=== PATIENT | male | born 1955 | race Caucasian/White ===

== ENCOUNTER 2018-10-24 15:56 | Outpatient (CLI) | payer BC, SELFPAY ==
[2018-10-26 20:45] LABS: Measles IgG Antibody Positive
== END 2018-10-24 16:16 ==
PROVIDERS: PCP Naturopath; Visit Provider Naturopath
DX: Z01.84 Encounter for antibody response examination (principal)
CPT/HCPCS: 36415; 86765

== ENCOUNTER 2021-06-23 02:19 | Outpatient (CLI) | payer BC, SELFPAY | END 2021-06-23 02:20 | disposition home or self-care (01) | LOC: LBO 02:19 | PROVIDERS: PCP Naturopath; Visit Provider Acupuncturist ==

== ENCOUNTER 2021-07-09 03:37 | Outpatient (CLI) | payer BC, SELFPAY ==
[2021-07-09 09:00] LABS: Abs Immature Grans 0.04 10^3/uL (0.0-0.06); Absolute Basophil Count 0.05 10^3/uL (0.0-0.2); Absolute Eosinophil Count 0.14 10^3/uL (0.0-0.7); Absolute Lymphocyte Count 1.63 10^3/uL (1.2-3.4); Absolute Monocyte Count 0.56 10^3/uL (0.1-0.8); Absolute Neutrophil Count 5.56 10^3/uL (1.2-6.7); Basophils % 0.6; Eosinophils % 1.8; HCT 46.6 % (40.0-50.0); HGB 14.9 g/dL (13.5-17.5); Immature Grans % 0.5; Lymphocytes % 20.4; MCV 90.7 fL (80-95); MPV 10.3 fL (8.0-11.0); Neutrophils % 69.7; Nucleated RBC 0 %; Platelet Count 269 10^3/uL (130-400); RBC 5.14 10^6/uL (4.36-5.78); RDW 12.2 % (11.8-14.1); RDW-SD 40.7 fL; WBC 7.98 10^3/uL (4.4-10.8)
[2021-07-09 10:27] LABS: Vitamin D 25 Total 18.3 ng/mL (30-100)
[2021-07-09 10:33] LABS: ALT 11 U/L (16-63); AST 12 U/L (15-37); Albumin 3.9 g/dL (3.4-5.0); Alkaline Phosphatase 105 U/L (46-116); Anion Gap 6.8 mmol/L (3-11); BUN 16 mg/dL (7-18); Bilirubin, Total 0.5 mg/dL (0.2-1.0); CO2 30.2 mmol/L (21.0-32.0); CREATININE 0.8 mg/dL (0.70-1.30); Calcium 9.1 mg/dL (8.5-10.1); Calculated LDL 92 mg/dL (<100); Chloride 100 mmol/L (98-107); Cholesterol 157 mg/dL (<200); Glucose 274 mg/dL (74-106); HDL Cholesterol 52 mg/dL (40-60); Sodium 137 mmol/L (136-145); TSH 1.24 uIU/mL (0.36-3.74); Total Protein 7.2 g/dL (6.4-8.2); Triglyceride 67 mg/dL (<150); Vitamin B12 312 pg/mL (193-986)
[2021-07-09 10:50] LABS: FREE T4 1.05 ng/dL (0.76-1.46)
[2021-07-09 17:23] LABS: T3, Total 141 ng/dL (97-169)
[2021-07-14 11:00] LABS: T3 (Triiodothyronine) Reverse 19 ng/dL (10-24)
== END 2021-07-09 03:38 | disposition home or self-care (01) ==
PROVIDERS: PCP Naturopath; Visit Provider Acupuncturist
DX: Z00.00 Encounter for general adult medical examination without abnormal findings (principal); R53.83 Other fatigue
CPT/HCPCS: 36415; 80053; 80061; 82306; 82607; 84439; 84443; 84480; 84481; 84482; 85025

== ENCOUNTER 2024-05-08 12:13 | Emergency (ER) | payer MEDICARE, SELFPAY ==
[2024-05-08] VITALS (29 sets, daily range): BP systolic 158–201; BP diastolic 82–95; PULSE 106–126; RESP 3–27; TEMP 36.2–38.8; O2SAT 93–106
--- NOTE | 2024-05-08 12:39 | W.ED.GENAD ---
Discharge Plan Disposition Patient Disposition: Home Condition: Stable Discharge Details Clinical Impression: COVID-19, LLL pneumonia, Enlarged thoracic aorta Primary Care Provider: Clare Kemp ED Provider: Valentina Sapp Home Meds and New Rx's Prescriptions: New Paxlovid 300 mg (150 mg x 2)-100 mg tablets,dose pack See Rx Instructions .ROUTE .COMPLEX Qty: 30 0RF Rx Instructions: take TWO 150 mg tablets of nirmatrelvir with ONE 100 mg tablet of ritonavir twice daily for 5 days azithromycin 250 mg tablet 250 mg PO DAILY 4 Days Qty: 4 0RF Rx Instructions: start on day 2 of therapy cefpodoxime 200 mg tablet 200 mg PO Q12H Qty: 10 0RF Rx Instructions: must administer with a meal/food Continued metformin 500 mg tablet 1,000 mg PO BID carbidopa-levodopa 25-100 mg tablet 1 tab PO TID Patient Comments: pt takes 1 every 3 hours Discharge Instructions Additional Instructions: Please call your primary care provider first thing in the morning to schedule follow-up appointment early next week. Your CAT scan did show some mild enlargement of your thoracic aorta. It is recommended that you have this monitored by your primary care provider with ultrasound. You are COVID-positive and have a consolidation in your left lower lobe consistent with pneumonia. Please take the azithromycin and cefpodoxime (antibiotics) and Paxlovid (antiviral) as prescribed. Keep an eye on your pulse ox at home. I recommend that you use a humidifier at home to help you with your clearing mucus. Stay well-hydrated. You may also use the albuterol inhaler 2 puffs every 4-6 hours as needed with spacer. Return to emergency care if you develop new chest pain, difficulty breathing, feeling like you are going to pass out, inability to hold down fluids, or if you are very worried and need to be rechecked again immediately. Referrals: Clare Kemp [Primary Care Provider] - [facility] General Date/Time Provider Initiated Documentation: 05/08/24 12:30. HPI Narrative: Melvin (preferred name) is a 68year old male who presents to the emergency department today for evaluation of low O2 sat according to at home. She reports that she was diagnosed with COVID-19 on the , Esteban developed symptoms yesterday afternoon. He reports feeling feverish/chills, body aches, congested cough, increased mucus production, sore throat, occasional headaches, and decreased appetite. He has been able to take p.o normally, the says that his throat is uncomfortable. Denies abdominal pain, difficulty breathing, chest pain, nausea/vomiting, change in bowel or bladder function. says that he normally has some difficulty with respiratory issues due to Parkinson's. Past medical history is significant for Parkinson's disease and T2DM. Physical exam remarkable for significant upper airway congestion. Moist mucous membranes, normal oropharynx. Cervical lymphadenopathy noted bilaterally. Normal heart sounds. Coarse wheezes throughout all lung jimenez. Occasional cough. Abdomen soft, nondistended, nontender to palpation. D/dx includes but is not limited to: Viral illness, pneumonia, reactive airway, persistent tachycardia concerning for pulmonary embolism in setting of COVID I independently interpreted the following tests: CBC and BMP reassuring. COVID-positive. No obvious infiltrate noted on chest x-ray. CTA performed to rule out PE, significant for left lower lobe infiltrate. No pleural effusion, pulmonary embolism, or acute pulmonary etiology noted otherwise. While in the emergency department, Esteban received an albuterol nebulizer with moderate improvement of symptoms. Workup today significant for COVID 19 and left lower lobe pneumonia. Will treat with Paxlovid and azithromycin/cefpodoxime. Advise close follow-up with PCP. Prescriptions sent to pharmacy. Reviewed discharge instructions with patient, including symptomatic management and red flags indicating need for return to emergency care. Patient and voiced agreement with plan of care. voice agreement with plan of care Related Data Home Medications ?Medication ?Instructions ?Recorded ?Confirmed azithromycin 250 mg tablet 250 mg PO DAILY 4 days #4 tabs 05/08/24 carbidopa 25 mg-levodopa 100 mg 1 tab PO TID 05/08/24 05/08/24 tablet cefpodoxime 200 mg tablet 200 mg PO Q12H #10 tabs 05/08/24 metformin 500 mg tablet 1,000 mg PO BID 05/08/24 05/08/24 nirmatrelvir 300 mg (150 mg See Rx Instructions PO .COMPLEX 05/08/24 x2)-ritonavir 100 mg tablet,dose #30 dose pk pack (Paxlovid) Previous Rx's ?Medication ?Instructions ?Recorded azithromycin 250 mg tablet 250 mg PO DAILY 4 days #4 tabs 05/08/24 cefpodoxime 200 mg tablet 200 mg PO Q12H #10 tabs 05/08/24 nirmatrelvir 300 mg (150 mg See Rx Instructions PO .COMPLEX 05/08/24 x2)-ritonavir 100 mg tablet,dose #30 dose pk pack (Paxlovid) Allergies Allergy/AdvReac Type Severity Reaction Status Date / Time No Known Allergies Allergy Unverified 05/08/24 12:23 General Stated Complaint: RespSymp FILIBERTO: 3 Review of Systems Narrative: see HPI Exam Const General: cooperative, comfortable, no acute distress and well developed Nutritional Appearance: average body habitus Orientation: alert HENMT Head: normal to inspection Ears: hearing grossly normal bilaterally General nose exam: nasal discharge clear Mouth: oral mucosae normal, oropharynx normal and moist mucous membranes Throat: posterior oropharynx normal Neck Neck: normal visual inspection, full ROM and lymphadenopathy bilateral anterior cervical Resp Effort & Inspection: normal respiratory effort, able to speak in complete sentences and cough Auscultation: wheezes (course throughout) Cardio Rate: tachycardic Rhythm: regular rhythm GI Inspection: normal to inspection and non-distended Palpation: soft and nontender Skin General skin exam: no rashes or lesions noted Course Vital Signs Vital signs: Vital Signs Temperature 36.2 C L 05/08/24 12:17 Pulse 112 H 05/08/24 12:17 Respiratory Rate 20 05/08/24 12:17 Blood Pressure 158/85 H 05/08/24 12:17 Pulse Oximetry 93 05/08/24 12:17 Temperature 36.2 C L 05/08/24 12:22 Pulse 112 H 05/08/24 12:22 Respiratory Rate 20 05/08/24 12:22 Respiratory Effort Normal 05/08/24 12:22 Blood Pressure 158/85 H 05/08/24 12:22 Pulse Oximetry 93 05/08/24 12:22 Oxygen Delivery Method Room Air 05/08/24 12:22 Oxygen Flow Rate 0 05/08/24 12:17 Medical Decision Making Quality:SDOH Health Related Social Needs: No Data to Display PFSH All Active Problems (Updated 05/08/24 @ 15:50 by Valentina Lewis) Enlarged thoracic aorta (Acute) LLL pneumonia (Acute) COVID-19 (Acute) Social History Smoking risk assessment performed?: No Do you feel safe in your relationship?: Yes
[2024-05-08] MEDS: Albuterol 2.5 MG/3 ML INH SOLN VIAL UPD (12:47)
[2024-05-08 13:22] LABS: Influenza A PCR Negative (Negative); Influenza B PCR Negative (Negative); RSV PCR Negative (Negative)
[2024-05-08 13:27] LABS: COVID-19 PCR Positive (Negative); Source Nasopharynx
--- NOTE | 2024-05-08 13:40 | DI.RAD_ITS ---
Exam(s) XR CHEST 2V PA LATERAL EXAM: XR CHEST 2V PA LATERAL CLINICAL HISTORY: cough, COVID+, h/o parkinsons TECHNIQUE: 2D digital imaging was performed of the chest. Two images were obtained. PA and lateral views were obtained. COMPARISON: No exams were available for comparison FINDINGS: MEDIASTINUM: Normal. HEART: Normal. PULMONARY VASCULATURE: Normal. LUNGS: No focal consolidating infiltrates. PLEURAL SPACE: No pleural effusion or pneumothorax. BONE:Within normal limits for the patient's age. OTHER FINDINGS:Normal. IMPRESSION: No focal consolidating infiltrates. DATA REPOSITORY: RADIATION DOSE DELIVERED:
--- NOTE | 2024-05-08 14:15 | DI.CT_ITS ---
Exam(s) CT CHEST PE CTA EXAM: CT CHEST PE CTA CLINICAL HISTORY: SOB, cough, COVID+ concern for PE. TECHNIQUE: Imaging Protocol: CT angiography of the chest was performed using pulmonary embolus princess col. Multi planar reconstructions were performed. CONTRAST MATERIAL: Intravenous: Omnipaque 350 Contrast volume: 100 cc COMPARISON: No exams were available for comparison FINDINGS: CHEST: PULMONARY ARTERIES: There are no intraluminal filling defects to suggest acute pulmonary emboli. LUNGS: There is some subpleural infiltrate in the posterior basal segment of the left lower lobe. No other pulmonary findings and there are no pleural effusions. No ground-glass infiltrates.. MEDIASTINUM: There is no hilar nor mediastinal adenopathy. Visualized thyroid unremarkable. CARDIAC: Heart size is upper normal. There is no pericardial effusion.Caliber of the ascending thora cic aorta is slightly prominent with maximum measurement 3.9 cm. No evidence of dissection. There i s no significant shift of the interventricular septum. 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 Also noted in the partially included right kidney is a 3 x 1.5 cm lesion which appears slightly denser than a typical cyst and should be studied with ultrasound. No adrenal masses evident. No splenomegaly. OSSEOUS: No fractures nor significant osseous lesions evident.. IMPRESSION: 1. No evidence of acute pulmonary emboli. No evidence of aortic dissection nor pericardial effusion. 2. There is some infiltrate evident in the left lower lobe posterior basal segment. Probable pneumon ia. No associated pleural effusion. Opposite-right lung is clear 3. Incidentally noted is mild enlargement of the diameter of the ascending thoracic aorta which measu res 3.9 cm. There is no evidence of aortic dissection Report called by myself to ER provider 05/08/2024 3:40 p.m. RADIATION DOSE DELIVERED: 105.03mGy.cm Total DLP DATA REPOSITORY: All CT scans at this facility are submitted to the National Radiology Data Registry (NRDR) Dose Index Registry (DIR) with the [employer] (ACR). RADIATION OPTIMIZATION: All CT scans at this facility use at least one of these dose optimization te chniques: automated exposure control; mA and/or kV adjustment per patient size (includes targeted exa ms where dose is matched to clinical indication); or iterative reconstruction.
--- NOTE | 2024-05-08 14:15 | RT.EKG_ITS ---
APPROVED REPORT Exam: Resting ECG Reason for Exam: Tachycardia Patient Location: E HR:116 bpm ECG Measurements Heart Rate 116 AXIS GA 155 P 26 QRSd 102 QRS 13 QT 307 T 68 QTc 427 Conclusion Sinus tachycardia 116 normal axis no stemi
[2024-05-08 14:37] LABS: Abs Immature Grans 0.04 10^3/uL (0.0-0.06); Absolute Basophil Count 0.02 10^3/uL (0.0-0.2); Absolute Eosinophil Count 0.27 10^3/uL (0.0-0.7); Absolute Neutrophil Count 7.76 10^3/uL (1.2-6.7); Basophils % 0.2 %; Eosinophils % 2.6 %; HCT 41.8 % (40.0-50.0); HGB 13.7 g/dL (13.5-17.5); Immature Grans % 0.4 %; Lymphocytes % 6.8 %; MCH 30.2 pg (27.0-33.0); MCHC 32.8 % (32.0-36.0); MCV 92 fL (80-95); MPV 9.8 fL (8.0-11.0); Monocytes % 14.6 %; Neutrophils % 75.4 %; Platelet Count 202 10^3/uL (130-400); RBC 4.53 10^6/uL (4.36-5.78); RDW-SD 40.9 fL; WBC 10.29 10^3/uL (4.4-10.8)
[2024-05-08 14:48] LABS: BUN 14 mg/dL (7-18); Calcium 8.6 mg/dL (8.5-10.1); Chloride 99 mmol/L (98-107); Estimated GFR 81.47 (mL/min/1.73m2); Glucose 209 mg/dL (74-106); Potassium 3.9 mmol/L (3.5-5.1); Sodium 133 mmol/L (136-145)
[2024-05-08] MEDS: Omnipaque 350 MG/ML 100 ML BTL IJ (15:11)
[2024-05-08] MEDS: Normal Saline - Diluent 50 ML VIAL IJ (15:12)
[2024-05-08] MEDS: Azithromycin 250 MG TAB 500 MG PO (15:56)
[2024-05-08] MEDS: Cefpodoxime 200 MG TAB PO (15:56)
[2024-05-08] MEDS: Albuterol HFA 8 GM 60 PUFF INH IH (15:56)
[2024-05-08] MEDS: Inhaler, Assist Device 1 EACH MC (15:57)
== END 2024-05-08 16:18 | disposition home or self-care (01) ==
PROVIDERS: Emergency Provider Nurse Practitioner Family; PCP Family Medicine
DX: U07.1 COVID-19 (principal); J12.82 Pneumonia due to coronavirus disease 2019; I77.810 Thoracic aortic ectasia; R00.0 Tachycardia, unspecified; G20.A1 Parkinson's disease without dyskinesia, without mention of fluctuations; E11.9 Type 2 diabetes mellitus without complications; Z79.84 Long term (current) use of oral hypoglycemic drugs; Z79.899 Other long term (current) drug therapy
CPT/HCPCS: 36415; 71275; 80048; 87426; 87637; 93005; 94640; 99285; 71046; 85025; 93010; J3490; J7613

== ENCOUNTER 2024-05-15 14:07 | Outpatient (CLI) | payer MEDICARE, SELFPAY ==
--- NOTE | 2024-05-15 | DI.RAD_ITS ---
Exam(s) XR CHEST 2V PA LATERAL EXAM: XR CHEST 2V PA LATERAL CLINICAL HISTORY: ACUTE COVID, U07.1, WORSENING SOB TECHNIQUE: 2D digital imaging was performed. Two views. COMPARISON: CT CT CHEST PE CTA from 05/08/2024 FINDINGS: HEART: Normal size. Aorta: Mildly ectatic. PULMONARY VASCULATURE: Normal. MEDIASTINUM: Unremarkable. LUNGS: Clear. PLEURAL SPACE: No pleural effusion or pneumothorax. BONE:Unremarkable for age. SOFT TISSUES: Unremarkable. IMPRESSION: No acute abnormality. DATA REPOSITORY: RADIATION DOSE DELIVERED:
== END 2024-05-15 14:27 ==
LOC: DI 14:13
PROVIDERS: PCP Family Medicine; Visit Provider Family Medicine
DX: R06.02 Shortness of breath (principal)
CPT/HCPCS: 71046

== ENCOUNTER 2024-11-14 15:51 | Outpatient (CLI) | payer MEDICARE, SELFPAY ==
--- NOTE | 2024-11-14 15:52 | DI.RAD_ITS ---
Exam(s) XR CHEST 2V PA LATERAL EXAM: XR CHEST 2V PA LATERAL CLINICAL HISTORY: Acute cough, R05.1. TECHNIQUE: 2D digital imaging was performed. COMPARISON: CR XR CHEST 2V PA LATERAL from 05/08/2024 CR XR CHEST 2V PA LATERAL from 05/15/2024 FINDINGS: 2 views: Heart size is normal. The mediastinum is not widened. Lungs are clear. No infiltrates nor pleural effusions. There is a new partially calcified nodule in the lateral left lung base. Measuring approximately 9 x 10 mm. None there is possibly that this represents of breast nipple but this finding was not previo usly evident. Similar finding not seen on the opposite-right side. No fractures. IMPRESSION: There is a benign-appearing 9 x 10 mm nodule in the lateral right lung base, not previously present. There is a possibly that this represents of breast nipple. Recommend repeat PA view with bilateral metallic nipple markers in place. No infiltrates nor pleural effusions. DATA REPOSITORY: RADIATION DOSE DELIVERED:
== END 2024-11-14 16:11 ==
LOC: DI 15:52
PROVIDERS: PCP Family Medicine; Visit Provider Physician Assistant Medical
DX: R05.1 Acute cough (principal); R91.8 Other nonspecific abnormal finding of lung field
CPT/HCPCS: 71046

== ENCOUNTER 2024-11-15 02:14 | Outpatient (CLI) | payer MEDICARE, SELFPAY ==
--- NOTE | 2024-11-15 | DI.US_ITS ---
APPROVED REPORT EXAM: Comprehensive 2D, Doppler, and color-flow Echocardiogram Patient Location: Out-Patient Student Activities Director: Maricarmen Moulton RDCS (AE) Indications: AAA rupture, Dilated ascending aorta seen on CT Other Information Study Quality: Fair. Technically limited study due to body habitus. Conclusion Normal left ventricular wall thickness and chamber size. Ejection fraction is 65%. Wall motion is n ormal Normal right ventricular size and function Both atria are normal in size There are no structural valvular abnormalities Mild mitral regurgitation Ascending aorta was not well-visualized Wall motion Left Ventricle The left ventricle is normal size. The overall left ventricular systolic function appears normal. Maik hnically limited, low parasternal imaging window. There is normal left ventricular wall thickness. Re gional wall motion is grossly normal. LVEF is 65%. Right Ventricle The right ventricle is normal size. The right ventricular systolic function is normal. Atria The left atrium size is normal. The right atrium size is normal. Aortic Valve The aortic valve is normal in structure. Aortic valve is trileaflet. There is no aortic valvular sten osis. Mitral Valve The mitral valve is normal in structure. No evidence of mitral valve stenosis. Mild mitral regurgitat ion. Tricuspid Valve The tricuspid valve is normal in structure. There is no tricuspid valve stenosis. There is no tricusp id valve regurgitation noted. Pulmonic Valve The pulmonary valve is normal in structure. There is no pulmonic valvular stenosis. There is no pulmo caleb valvular regurgitation. Great Vessels The aortic root is normal in size. Ascending aorta is not well visualized. The IVC was not visualized . Technically limited subcostal imaging. Pericardium Technically limited subcostal imaging. 2D Dimensions IVSD d PLAX 0.90 cm M: 0.6-1.2 Ao Root d 3.45 cm M: 3.1 - 3.7 LVPW d PLAX 0.92 cm M: 0.6 - 1.2 LVID d PLAX 4.92 cm M: 4.2 - 5.8 LVDs 3.35 cm M: 2.5 - 4.0 LV EF Teichholz 59.8 % FS 31.91 % LV EDV (Teich) 113.7 mL LV ESV (Teich) 45.7 mL M-Mode TAPSE 3.08 cm (M/F) >1.7 Auto EF LV EDV A4C 146.1 mL LV EDV A2C 142.8 mL LV EDV BP 144.1 mL LV ESV A4C 63.0 mL LV ESV A2C 60.7 mL LV ESV BP 61.5 mL LVEF(%) A4C 56.9 % LVEF(%) A2C 57.5 % LVEF(%) BP 57.3 % LV SV A4C 83.1 ml LV SV A2C 82.2 ml LV SV BP 82.6 ml LV CO A4C 7.1 L/min LV CO A2C 7.3 L/min LV CO BP 7.2 L/min HR A4C 85.31 BPM HR A2C 88.46 BPM LV EDV Index (BP) LA Volume LA Length A4C 5.4 cm LA Length A2C 5.8 cm LA Area A4C s 20.41 cm2 LA Area A2C s 19.95 cm2 LA Vol A4C A-L 65.93 mL LA Vol A2C A-L 58.23 mL LA Vol Biplane A-L 64.5 mL LA Vol/BSA A4C A-L LA Vol/BSA A2C A-L LA Vol/BSA BP A-L 31.0 mL/m2 LA Vol A4C MOD 61.6 mL LA Vol A2C MOD 53.1 mL LA Vol BP MOD 58.3 mL RA Volume RA Area A4C 14.2 cm2 RA ESV A4C (A-L) 35.8mL RA Vol/BSA A4C A-L RA Length A4C 4.8 cm RA ESV A4C (MOD) 34.9mL LV Diastology MV E' medial 0.103 (>0.07 m/s) MV E Vmax 0.81 (0.4-1.3 m/s) MV E/E' MED 7.89 (<14) MV A Vmax 0.90 (0.4-1.3 m/s) MV E' lateral 0.103 (>0.1 m/s) E/A Ratio 0.9 MV E/E' LAT 7.89 (<14) MV E' Average 0.103 m/s MV E/E'(average) 7.89 Aortic Valve AoV Vmax 1.62 m/s LVOT Vmax 1.02 m/s AoV Peak Grad 10.5 mmHg LVOT Peak Grad 4.2 mmHg AoV Area (Vmax) 2.04 cm2 LVOT VTI 0.232 m AoV VTI 0.356 m LVOT Mean Grad 2.3 mmHg AoV Mean Jonas. 1.17 m/s LVOT SV 74.93 mL AoV Mean Grad 6.1 mmHg LVOT Diam s 2.00 cm AoV Area (VTI) 2.10 cm2 AV Regurg Peak Gr. 10.47 mmHg Velocity Ratio 0.63 Mitral Valve MV DT 267 (160-240 msec) MV Vmax TIPS 0.94 m/s MV Mean Grad 1.7 (<2mmHg) MV VTI 0.191 m Pulmonary Valve PV Vmax 1.12 (0.5-1.5 m/s) RVOT Vmax 1.17 m/s PV Peak Grad 5.0 mmHg RVOT Peak Gr. 5.5 mmHg PV Mean Jonas 0.84 m/s RVOT VTI 0.228 m PV Mean Grad 3.0 mmHg RVOT Mean Gr. 3.0 mmHg Tricuspid Valve TV S' 0.20 m/s TR Vmax 2.05 m/s TR Peak Grad 16.7 mmHg
== END 2024-11-15 02:34 ==
LOC: DI 02:14
PROVIDERS: PCP Family Medicine; Visit Provider Family Medicine
DX: I71.21 Aneurysm of the ascending aorta, without rupture (principal)
CPT/HCPCS: 93306

== ENCOUNTER 2024-11-15 02:14 | Outpatient (CLI) | payer MEDICARE, SELFPAY ==
--- NOTE | 2024-11-15 13:45 | DI.RAD_ITS ---
Exam(s) XR CHEST 1V IN DI DEPT EXAM: XR CHEST 1V IN DI DEPT CLINICAL HISTORY: ACUTE COUGH, R05.1, F/U XR 11/14/24,RT LUNG NODULE VS NIPPLE SHADOW TECHNIQUE: 2D digital imaging was performed of the chest. One image was obtained. PA was obtained. COMPARISON: CR XR CHEST 2V PA LATERAL from 05/08/2024 CR XR CHEST 2V PA LATERAL from 05/15/2024 CR XR CHEST 2V PA LATERAL from 11/14/2024 FINDINGS: Single PA view was obtained with nipple markers. MEDIASTINUM: Normal. HEART: Normal. PULMONARY VASCULATURE: Normal. LUNGS: The nodule previously described overlying the left lung base laterally is not visualized on th e current examination. No pulmonary nodules or infiltrates are present. PLEURAL SPACE: No pleural effusion or pneumothorax. BONE:Within normal limits for the patient's age. OTHER FINDINGS:Normal. IMPRESSION: No acute pulmonary findings. DATA REPOSITORY: RADIATION DOSE DELIVERED:
== END 2024-11-15 02:34 ==
PROVIDERS: PCP Family Medicine; Visit Provider Physician Assistant Medical
DX: R05.1 Acute cough (principal)
CPT/HCPCS: 93306; 71045

== ENCOUNTER 2024-12-24 02:16 | Outpatient (CLI) | payer MEDICARE, SELFPAY ==
--- NOTE | 2024-12-24 | DI.CT_ITS ---
Exam(s) CT CHEST W EXAM: CT CHEST W CLINICAL HISTORY: Aneurysm of ascending aorta wo rupture, I71.21, f/u CT from 04/2024. TECHNIQUE: Multi planar reconstructions were performed. CONTRAST MATERIAL: Omnipaque 350; 75 cc COMPARISON: CT CT CHEST PE CTA from 05/08/2024 FINDINGS: CHEST: LUNGS: Previously present subpleural infiltrate in the left lower lobe seen on CT scan of April 2024 has resolved. There presently no infiltrates nor pleural effusions on either side. There is an unchanged small subpleural nodule in the left lower lobe which measures 3 mm, unchanged no additional lung nodules evident. MEDIASTINUM: There is no hilar nor mediastinal adenopathy. Thyroid gland size is normal but there are no nodules evident in both thyroid lobes. CARDIAC: Heart size is normal. There is no pericardial effusion.Diameter of the ascending thoracic aorta is again noted be slightly prominent, maximum diameter 3.9 cm. No evidence of dissection or pericardial effusion. The diameter of the aortic arch and descending thoracic aorta are minimally prominent, also without dissection. VISUALIZED UPPER ABDOMEN:There are no significant adrenal masses. Lowermost images of this study reveals a partially included lesion in the lateral cortex of the right kidney measuring 2 cm. This does not have the appearance of a simple cyst and requires further investigation to rule out neoplasm. In OSSEOUS: No significant osseous lesions.No fractures nor listhesis.. IMPRESSION: 1. The diameter of the ascending thoracic aorta again measures 3.9 cm which is slightly prominent but unchanged. There is no evidence of aortic dissection. No pericardial effusion. Normal heart size. 2. No new significant pulmonary findings. The small infiltrate in left lower lobe previously present has cleared. There is a solitary 3-4 mm noncalcified nodule in left lower lobe which appears unchanged from CT scan of 05/08/2024. 3. Thyroid nodules are incidentally noted. If clinically indicated can be further studied with ultrasound. Other findings as above. RADIATION DOSE DELIVERED: 193.49mGy.cm Total DLP DATA REPOSITORY: All CT scans at this facility are submitted to the National Radiology Data Registry (NRDR) Dose Index Registry (DIR) with the [employer] (ACR). RADIATION OPTIMIZATION: All CT scans at this facility use at least one of these dose optimization techniques: automated exposure control; mA and/or kV adjustment per patient size (includes targeted exams where dose is matched to clinical indication); or iterative reconstruction.
[2024-12-24 14:41] LABS: Estimated GFR 95.21 (mL/min/1.73m2)
[2024-12-24] MEDS: Omnipaque 350 MG/ML 100 ML BTL 70 ML IJ (15:01)
[2024-12-24] MEDS: Normal Saline - Diluent 50 ML VIAL IJ (15:02)
== END 2024-12-24 02:36 ==
LOC: DI 02:16
PROVIDERS: PCP Family Medicine; Visit Provider Family Medicine
DX: I71.21 Aneurysm of the ascending aorta, without rupture (principal)
CPT/HCPCS: 71260; 82565; J3490